=== PATIENT | female | born 1945 | race Caucasian/White ===

== ENCOUNTER 2017-01-02 07:30 | Inpatient (IN) | payer MEDICARE ==
--- NOTE | 2016-12-23 14:40 | HP ---
HISTORY AND PHYSICAL: DATE OF SURGERY: 01/03/17 SURGEON: Sandy Parada MD * (DICTATED BY DARYA ENGLISH) PROCEDURE: Right total hip arthroplasty. DATE OF OFFICE VISIT: 12/23/16 CHIEF COMPLAINT: Right hip pain. HISTORY OF PRESENT ILLNESS: Ms. Haskins is a 71-year-old female with complaints of continued right hip pain secondary to advanced osteoarthritis. She has failed conservative management, has elected to proceed with a right total hip arthroplasty, which is scheduled for 01/03/17. PAST MEDICAL HISTORY: Chronic back pain and osteoarthritis. PAST SURGICAL HISTORY: Right foot bunionectomy, left hand surgery, right foot metatarsal surgery, appendectomy. CURRENT MEDICATIONS: 1. Vitamin E. 2. Vitamin D3. 3. Aspirin 81 mg daily. 4. Claritin. 5. Fluticasone. 6. Raloxifene. ALLERGIES: SULFA drugs. FAMILY HISTORY: Colon cancer. SOCIAL HISTORY: She is a 71-year-old female. She lives with her . She does not smoke or use drugs. Uses occasional alcohol. REVIEW OF SYSTEMS: A complete 14-point review of systems is reviewed with the patient, was all negative or noncontributory. PHYSICAL EXAMINATION GENERAL: She is a well-developed, well-nourished, in no acute distress. VITAL SIGNS: She stands 5 feet 4 inches tall, weighs 134 pounds. Her blood pressure is 126/87, her heart rate is 81. HEENT: Normocephalic, atraumatic. NECK: Supple. No palpable lymph nodes. PULMONARY: Lungs are clear to auscultation bilaterally. CARDIAC: Regular rate and rhythm. Strong S1 and S2. ABDOMEN: Soft, nontender, nondistended. NEUROLOGIC: She is alert and oriented x3. Cranial nerves II through XII are intact. MUSCULOSKELETAL: Right lower extremity, the skin is intact. There are no open wounds or abrasions. She walk with a slightly antalgic type gait favoring her right hip. She has limited internal and external rotation of her right hip. Her lower extremity muscle group strengths are intact at 5/5. She has 2+ dorsalis pedis pulses and intact sensation. ASSESSMENT AND PLAN: Ms. Haskins is a 71-year-old female with continued complaints of right hip pain secondary to advanced osteoarthritis. She has failed conservative management and has elected to proceed with a right total hip arthroplasty, which is scheduled for 01/03/[address] Parada discussed the risks and the benefits of the surgery at today's visit and all of her questions were answered. Coumadin, Colace and Percocet were sent to her pharmacy for postoperative pain control and DVT prophylaxis. She will see Dr. Parada back 2 weeks after the surgery. DARYA ENGLISH [id number]/[facility] #: [id number] MTDD
--- NOTE | 2016-12-23 15:18 | RAD ---
INDICATION: Right hip pain, osteoarthritis, preadmission evaluation. COMPARISON: There are no prior studies available for comparison. TECHNIQUE: Dual-energy PA views of the chest were obtained. FINDINGS: The heart is within normal limits in size. Mediastinal and hilar contours appear within normal limits. The lungs are clear. No pleural effusion is present. IMPRESSION: NO EVIDENCE FOR ACTIVE CARDIOPULMONARY DISEASE.
[2017-01-02] MEDS ORDERED: Buffered Lidocaine 0.9% SYRIN* 5 ML/SYR SYRINGE INTRADERM ONE (13:32)
[2017-01-03] MEDS ORDERED: Buffered Lidocaine 0.9% SYRIN* 5 ML/SYR SYRINGE ONE (07:20)
[2017-01-03] MEDS ORDERED: Morphine PF AMP (0.5MG/ML)* 5 MG/10 ML AMP ONE (07:57)
[2017-01-03] MEDS ORDERED: Midazolam* 1 MG/ML 5 ML VIAL (5 MG) ONE (07:58)
[2017-01-03] MEDS ORDERED: fentaNYL* 50 MCG/ML 2 ML VIAL (100 MCG VIAL) ONE (07:58)
[2017-01-03] MEDS ORDERED: Propofol* 500 MG/50 ML BTL ONE (08:00)
[2017-01-03] MEDS ORDERED: fentaNYL* 50 MCG/ML 2 ML VIAL (100 MCG VIAL) IV PRN (11:27)
[2017-01-03] MEDS ORDERED: Ondansetron INJ* 2 MG/ML VIAL IV PRN (11:30)
[2017-01-03] MEDS ORDERED: diPHENhydraMINE IV* 50 MG/ML 1 ml VIAL (BENADRYL) IV PRN (11:31)
[2017-01-03] MEDS ORDERED: PROCHLORPERAZINE INJ 5 MG/ML 2 ML VIAL IV PRN (11:31)
[2017-01-03] MEDS ORDERED: Nalbuphine* 20 MG/ML 1 ML VIAL IV PRN (11:31)
[2017-01-03] MEDS ORDERED: Naloxone* 0.4 MG/ML 1 ML VIAL IV PRN (11:31)
[2017-01-03] MEDS ORDERED: HYDROcodone/ACETAMIN 5-325 MG* 1 TAB PO PRN ×2 (11:31)
--- NOTE | 2017-01-03 11:32 | RAD ---
HISTORY: Right hip arthroplasty COMPARISONS: November 09, 2016 VIEWS: 1, portable intraoperative view of the right hip during hip arthroplasty FINDINGS: Single portable intraoperative view of the pelvis demonstrates right hip arthroplasty with a temporary femoral sizing component IMPRESSION: PORTABLE VIEW OF THE PELVIS DURING RIGHT HIP ARTHROPLASTY
[2017-01-03] MEDS ORDERED: Polyethylene Glycol 3350* 17 GM PACKET PO PRN (11:58)
[2017-01-03] MEDS ORDERED: Bisacodyl SUPP* 10 MG SUPP PR PRN (11:58)
--- NOTE | 2017-01-03 12:43 | RAD ---
HISTORY: Status post right total hip replacement COMPARISONS: November 09, 2016 VIEWS: 3, frontal views of the pelvis with frontal and crosstable lateral views of the right hip FINDINGS: BONE DENSITY: Normal. BONES: The patient is status post right hip arthroplasty. There is no hardware failure or osteolysis. JOINTS: The patient is status post right hip arthroplasty ALIGNMENT: There is no dislocation. SOFT TISSUES: Unremarkable. OTHER FINDINGS: None. IMPRESSION: STATUS POST RIGHT HIP ARTHROPLASTY
[2017-01-03] MEDS ORDERED: Ondansetron INJ* 2 MG/ML VIAL ONE (13:47)
[2017-01-03] MEDS: Ondansetron INJ* 2 MG/ML VIAL IV PRN ×2 (13:55→20:03)
[2017-01-03] MEDS: Acetaminophen TAB* 325 MG PO SCH ×3 (14:19→22:48)
[2017-01-03] MEDS ORDERED: Warfarin TAB(*) 6 MG PO ONE (17:00)
[2017-01-03] MEDS: ceFAZolin 1 GM VIAL(*) 1 GM in NS 0.9% 50 ML* 50 ML IVPB SCH (17:03)
[2017-01-03] MEDS: Magnesium Hydroxide LIQ* 30 ML UDC PO SCH (20:36)
[2017-01-03] MEDS: Docusate CAP* 100 MG PO SCH (20:36)
[2017-01-03] MEDS: Warfarin TAB(*) 6 MG PO ONE ×2 (20:36→22:48)
[2017-01-04] MEDS: ceFAZolin 1 GM VIAL(*) 1 GM in NS 0.9% 50 ML* 50 ML IVPB SCH ×2 (00:12→09:06)
[2017-01-04] MEDS ORDERED: diPHENhydraMINE IV* 50 MG/ML 1 ml VIAL (BENADRYL) IV PRN (01:00)
[2017-01-04] MEDS ORDERED: oxyCODONE/Acetamin 5/325 MG* TAB PO PRN (01:00)
[2017-01-04] MEDS ORDERED: diPHENhydraMINE PO* 25 MG PO PRN (01:00)
[2017-01-04] MEDS ORDERED: Ondansetron TAB* 4 MG PO PRN (01:00)
[2017-01-04] MEDS ORDERED: Ondansetron INJ* 2 MG/ML VIAL IV PRN (01:00)
[2017-01-04] MEDS ORDERED: Morphine INJ* 10 MG/ML 1 ML SYRINGE IV PRN (01:00)
[2017-01-04] MEDS ORDERED: Acetaminophen TAB* 325 MG PO PRN (01:00)
--- NOTE | 2017-01-04 03:51 | OP ---
DATE OF OPERATION: 01/03/17 - ROOM #348 DATE OF : 45 SURGEON: Sandy Parada MD [employer]USTRI[employer] C[employer]TER: DARYA Schreiber. Ms. Caballero did help throughout the procedure with preparation of the leg, wound retraction, manipulation of the hip, and wound closure. ANESTHESIOLOGIST: Davida Plunkett MD ANESTHESIA: Spinal. PRE-OP DIAGNOSIS: Severe end-stage degenerative osteoarthritis of the right hip joint. POST-OP DIAGNOSIS: Severe end-stage degenerative osteoarthritis of the right hip joint. OPERATIVE PROCEDURE: Right total hip arthroplasty. INDICATIONS: Ms. Haskins is a 71-year-old female with years of increasingly severe right hip pain. She failed conservative treatment with antiinflammatories, pain medication, ambulatory assistive devices, and physical therapy. Due to continued pain and decreased quality of life, she elected to undergo right total hip arthroplasty. Radiographs confirmed [id number] arthritis. Informed consent was obtained from the patient. She understood the risks of the procedure included, but were not limited to bleeding, infection, damage to nearby structures, continued pain, need for further surgery, intraoperative fracture, nerve palsy, dislocation, leg length discrepancy, stroke, heart attack, blood clot, and . She wished to proceed. ESTIMATED BLOOD LOSS: 200 cc. SPECIMENS: Femoral head and acetabular reaming sent to Pathology. COMPLICATIONS: None. HARDWARE USED: This is uncemented Mark total hip arthroplasty hardware for the acetabulum of 52E Trident hemispherical acetabular shell. Two 20-mm screws were used. For the insert, a MDM cementless liner 42E. For the femoral stem, an Accolade TMZF, size 4, 132-degree neck. For the femoral head, a [place] LFIT femoral head 28 +0 and for the insert, a hindu ADM/MDM, size 28/48/ 42E. INTRAOPERATIVE FINDINGS: Intraoperatively, the patient was noted to have end- stage arthritis with complete loss of cartilage along the femoral head and acetabulum. She had significant anterior and inferior acetabular osteophyte formation. Osteopenia was noted throughout the case. DESCRIPTION OF PROCEDURE: Ms. Haskins was identified in the preanesthesia unit. Her right lower extremity was marked as the correct operative side. Informed consent was signed and placed in the chart. The patient was taken to the operating room and placed under spinal anesthesia. A Santoro catheter was placed. The patient was placed in the left lateral decubitus position on the peg board and all bony prominences were well padded. Right lower extremity was prepped and draped in the usual sterile fashion. Preop time-out was made to correctly identify the patient's side and site. Appropriate perioperative antibiotics were given within 1 hour of incision. The right lower extremity was prepped and draped in the usual sterile fashion. A 12-cm posterior hip incision was made with a 10 blade and carried down to the lateral fascial layer. Lateral fascial layer was then incised in line with the skin incision using a 10 blade. A Charnley retractor was placed. The piriformis and conjoint tendons were identified along the posterolateral femur. These were elevated off the posterolateral femur using electrocautery and tagged with two #5 Ethibonds. Next, electrocautery was used to make a standard posterolateral capsular flap, and this was also tagged with two #5 Ethibonds. The hip was carefully dislocated. Lesser troch to center of the femoral head measured 60 mm. An oscillating saw was used to make the appropriate femoral neck cut. The femoral head was sent to Pathology. The femur was carefully retracted anteriorly. After appropriate placement of retractors, the acetabulum was visualized. There was significant osteophyte formation along the anterior and inferior acetabulum. Long-handled knife was used to sharply remove any remaining labrum from the acetabular rim. The acetabulum was sequentially reamed up to a size 51. Good subchondral bleeding bone bed was obtained. A size 51 trial had excellent fit. Final implant chosen was a Trident hemispherical acetabular shell size 52E. This was impacted into the acetabulum without difficulty. Stability of the acetabular shell was excellent with good abduction angle and anteversion. Two 20-mm screws were placed in the superoposterior quadrant for added stability. An MDM cementless liner 42E was chosen and this was impacted into the acetabulum. To prevent impingement, a thin osteotome was used to remove osteophytes along the anterior and inferior acetabular rim. Attention was next turned to preparation of the proximal femur. A canal finder was used to enter the proximal femur. Proximal femur was then sequentially broached up to a size 4. Size 4 had good stability and fit as well as appropriate anteversion. A 132-degree neck trial was chosen as well as a 28 +0 femoral head and 28/48/42E liner trial. The hip was reduced and taken through a range of motion. The hip was stable in all positions. The hip was carefully dislocated. All trials were carefully removed. Size 4 Accolade TMZF femoral stem with a 132-degree neck angle was chosen as the final implant. This was impacted into the femoral canal without difficulty. Good stability was obtained. The 28 +0 femoral head was chosen and lesser troch to center of the femoral head measured 60 mm. The final insert was a 28/48/42E insert. The hip was carefully reduced and taken through a range of motion. The hip was stable in all positions. The hip was copiously irrigated with sterile saline. Previously tagged tendons and capsule were reapproximated to the posterolateral femur through two trochanteric drill holes. Lateral fascial layer was closed using interrupted # 1 Vicryls. The rest of the incision was closed in a layered fashion using 0 and 2-0 Vicryls. Skin was closed using 3-0 Monocryl and Dermabond. Sterile Adaptic, 4x4's, and paper tape were used to cover the incision. The patient's anesthesia was reversed without difficulty. She was taken to the PACU in stable condition. The intended weightbearing will be weightbearing as tolerated with posterior hip precautions. Intended DVT prophylaxis will be Coumadin with a Lovenox bridge. [id number]/[facility] #: [id number] CARLOTA
[2017-01-04] MEDS: oxyCODONE TAB* 5 MG TAB PO PRN ×2 (06:17→20:00)
[2017-01-04 08:47] LABS: Hematocrit 35 % (35-47); Hemoglobin 11.5 g/dl (12.0-16.0)
[2017-01-04] MEDS ORDERED: NS 0.9% 50 ML* 50 ML ONE (08:59)
[2017-01-04 09:00] LABS: BUN/Creatinine Ratio 15.3 (8-20); Calcium 8.8 mg/dL (8.6-10.3); EGFR African American 129.2 (>60); EGFR Non-African American 100.5 (>60); Potassium 3.5 mmol/L (3.5-5.0)
[2017-01-04] MEDS: Vitamin THERAPEUTIC TAB PO SCH (09:03)
[2017-01-04] MEDS: Cholecalciferol TAB* 400 UNIT PO SCH (09:03)
[2017-01-04] MEDS: Docusate CAP* 100 MG PO SCH ×2 (09:03→20:00)
[2017-01-04] MEDS: Cetirizine* 10 MG TAB PO SCH (09:03)
[2017-01-04] MEDS: Magnesium Hydroxide LIQ* 30 ML UDC PO SCH ×2 (09:05→19:59)
[2017-01-04] MEDS: RALOXIFENE 60 MG PO SCH (09:43)
[2017-01-04] MEDS: Fluticasone NASAL SPRAY 50MCG* 16 gm SPRAY BTL BOTH NARES SCH (09:43)
--- NOTE | 2017-01-04 10:42 | PN ---
Progress Note - Progress Note Date of Service: 01/04/17 SOAP: Subjective: []Patient seen OOB in chair. She is felling well, mild right hip pain. Denies dizziness, SOB or chest pain. If she continues to do well she may consider discharge home tomorrow afternoon. Objective: [] Vital Signs Temp 98.0 F 01/04/17 07:42 Pulse 93 01/04/17 07:42 Resp 18 01/04/17 08:17 BP 97/47 01/04/17 07:42 Pulse Ox 99 01/04/17 07:42 Intake & Output 01/03/17 01/04/17 01/04/17 18:59 06:59 18:59 Intake Total 2200 2573 225 Output Total 700 500 Balance 1500 2073 225 Weight 133 lb Intake: IV Fluids 1800 1633 ABX - CEFAZOLIN 110 LR 1800 1523 Oral 400 940 225 Output: Urine 500 Santoro 150 500 Emesis 50 Laboratory Results - last 24 hr 01/04/17 01/04/17 01/04/17 08:33 08:33 08:33 Hgb 11.5 L Hct 35 INR (Anticoag Therapy) 0.99 Sodium 133 Potassium 3.5 Chloride 102 Carbon Dioxide 27 Anion Gap 4 BUN 9 Creatinine 0.59 Est GFR ( Amer) 129.2 Est GFR (Non-Af Amer) 100.5 BUN/Creatinine Ratio 15.3 Glucose 158 H Calcium 8.8 Right hip dressing is dry and intact +DF/PF right ankle calf non tender and soft sensation and circulation intact distally Assessment: []s/p Right total hip arthroplasty POD #1 Plan: []PT/OT WBAT RLE Coumadin with Lovenox bridge- 8 mg today Possible discharge home tomorrow if PT goals mastered
[2017-01-04] MEDS: oxyCODONE/Acetamin 5/325 MG* TAB PO PRN ×2 (10:52→16:51)
[2017-01-04] MEDS: Enoxaparin(*) 30 MG/0.3 ML SYR SUBCUT SCH (12:18)
[2017-01-04] MEDS ORDERED: Lactated Ringers 500 ml BAG* 500 ML IV ONE (15:00)
[2017-01-04] MEDS ORDERED: Warfarin TAB(*) 4 MG PO ONE (17:00)
[2017-01-04 17:58] LABS: Hematocrit 35 % (35-47); Hemoglobin 11.4 g/dl (12.0-16.0)
--- NOTE | 2017-01-05 00:13 | CONS ---
CC: Dr. Ralf Olivas; Dr. Parada * CONSULTATION REPORT: DATE OF CONSULTATION: 01/04/17 PRIMARY CARE PROVIDER: Dr. Ralf Olivas. REQUESTING PROVIDER: Dr. Parada. REASON FOR CONSULTATION: Hypotension. HISTORY OF PRESENT ILLNESS: Ms. Haskins is a 71-year-old female who was in relatively good health, who was admitted to [facility] following an elective right total hip arthroplasty. The patient had been doing well postoperatively; however, states that the day of her surgery, she vomited quite a lot. She states that she was unable to keep anything down. Today, the day of consultation, the patient has been able to keep food down. She was up working with physical therapy on getting to a standing position from a chair when she suddenly felt faint. The patient described it as being mild; however, the staff noted her to be pale and diaphoretic. The patient's blood pressure was obtained at that time and her systolic blood pressure was less than 80. The patient was assisted into a recliner and brought back to her room. At that time , the patient was seen by DARYA Schreiber from Orthopedics where a 500 mL bolus of LR was administered. The patient's blood pressure since that episode has remained on the low side. The patient does tell me that her usual blood pressure is in the 120s to 130s range. Of note, however, the patient's blood pressure has been soft since the morning the day after surgery. The patient currently denies any lightheadedness. She had just gotten up to the bathroom with assistance from nursing without any lightheadedness or dizziness. She denies any chest pain or shortness of breath. PAST MEDICAL HISTORY: 1. Allergic rhinitis. 2. Osteoporosis. 3. Chronic back pain. PAST SURGICAL HISTORY: 1. Right total hip arthroplasty. 2. Right foot bunionectomy. 3. Left hand surgery. 4. Right foot metatarsal surgery. 5. Appendectomy. ALLERGIES: SULFA MEDICATIONS, BEES, and MUSHROOMS. HOME MEDICATIONS: 1. Flonase 2 squirts in both nostrils daily. 2. Aspirin 81 mg p.o. daily. 3. Evista 60 mg p.o. daily. 4. Loratadine 10 mg p.o. daily. 5. Vitamin D 400 units p.o. daily. 6. Epinephrine injected as needed for allergic reaction. 7. Fluocinonide cream apply topically twice daily p.r.n. dry skin. HOSPITAL MEDICATIONS: 1. Tylenol. 2. Dulcolax suppository. 3. Zyrtec. 4. Vitamin D. 5. Benadryl. 6. Colace. 7. Lovenox. 8. Flonase. 9. Lactulose. 10. Milk of magnesia. 11. Morphine. 12. Multivitamin. 13. Zofran. 14. Oxycodone. 15. Percocet. 16. MiraLAX. 17. Evista. FAMILY HISTORY: Positive for colon cancer. SOCIAL HISTORY: The patient is . She lives with her . She does not drink routinely. She does not use tobacco. REVIEW OF SYSTEMS: A complete 11-system review of systems is obtained. Pertinent positives and negatives as per HPI and otherwise negative. PHYSICAL EXAMINATION: Blood pressure 88/50, pulse 84, respirations 16, temp 98.2, O2 sat 97% on room air. General: The patient is a well-developed, elderly female, sitting up in bed, appearing well, and in no acute distress. HEENT: Pupils are equal, they are round, they react to light. Extraocular muscles are intact. Oropharynx is clear. Oral mucosa is moist. There is no submandibular, cervical, or supraclavicular adenopathy. Thyroid is not enlarged. No thyroid nodules are noted. Cardiac: Normal S1, S2. Regular rate and rhythm. I do not appreciate any murmurs. There is no lower extremity edema. Pulmonary: Lungs are clear to auscultation bilaterally. Abdomen: Bowel sounds are present. Abdomen is soft, nontender, nondistended. Musculoskeletal: There is full active range of motion of the upper extremities. Lower extremity range of motion not tested due to being only postop day #1 from right total hip arthroplasty. Skin is warm and dry. There are no rashes. The dressing over the lateral hip is clean and dry. Neuro testing is not performed at this time. Psych: The patient is alert; she is oriented x3. Affect appears appropriate. DIAGNOSTIC STUDIES/LAB DATA: Hemoglobin of 11.5, hematocrit of 35, this is down from a hemoglobin of 14.5 and a hematocrit of 44 on 12/23/16. ASSESSMENT AND PLAN: Ms. Haskins is a 71-year-old female postop day #1 from an elective right total hip arthroplasty who has been hypotensive on postop day #1 with possible near syncopal events during physical therapy. 1. Hypotension. My suspicion is patient is hypotensive related to poor oral intake prior to surgery and then vomiting after surgery. The patient states her appetite has finally improved today. She did receive a 500 mL bolus; however, as she does not have a history of heart failure, I have recommended that she receive another 1 L bolus with blood pressure to follow. Additionally , as the hypotension is relatively new today, I will go ahead and order a stat hemoglobin and hematocrit to ensure that she has not bled significantly. The patient did have a drop in her H and H following surgery; however, that mild drop, I would not think could cause the hypotension being seen today. Stat H and H is pending at the time of this dictation. 2. Near syncopal episode. I suspect this is likely vasovagal and likely related to volume depletion. The patient feels much improved. She was able to ambulate to the bathroom with assistance without any difficulty. I do not believe that she needs to be transferred at this time for any further monitoring. 3. DVT prophylaxis, management per Orthopedics and currently consists of Lovenox bridging to Coumadin. 4. Code status is full. TIME SPENT: 40 minutes were spent on this consultation. [id number]/[facility] #: [id number] CARLOTA
[2017-01-05] MEDS: oxyCODONE TAB* 5 MG TAB PO PRN (00:18)
[2017-01-05] MEDS: oxyCODONE/Acetamin 5/325 MG* TAB PO PRN ×2 (04:33→08:14)
[2017-01-05 06:17] LABS: Hematocrit 33 % (35-47); Hemoglobin 10.8 g/dl (12.0-16.0)
[2017-01-05] MEDS: Fluticasone NASAL SPRAY 50MCG* 16 gm SPRAY BTL BOTH NARES SCH (07:17)
[2017-01-05] MEDS: Magnesium Hydroxide LIQ* 30 ML UDC PO SCH (08:13)
[2017-01-05] MEDS: Cetirizine* 10 MG TAB PO SCH (08:14)
[2017-01-05] MEDS: Cholecalciferol TAB* 400 UNIT PO SCH (08:14)
[2017-01-05] MEDS: Docusate CAP* 100 MG PO SCH (08:14)
[2017-01-05] MEDS: Vitamin THERAPEUTIC TAB PO SCH (08:14)
[2017-01-05] MEDS: RALOXIFENE 60 MG PO SCH (08:14)
--- NOTE | 2017-01-05 09:44 | PN ---
Progress Note - Progress Note Date of Service: 01/05/17 SOAP: Subjective: []Patient seen OOB in chair. She is feeling much better today. Her color is much improved and denies further nausea, vomiting or dizziness. She denies SOB or chest pain. She is waiting for her family to come in for PT session and hopes that she will be able to go home this afternoon. Objective: [] Vital Signs Temp 98.0 F 01/05/17 07:36 Pulse 106 01/05/17 07:36 Resp 18 01/05/17 08:14 BP 92/48 01/05/17 07:36 Pulse Ox 97 01/05/17 07:36 Intake & Output 01/04/17 01/05/17 01/05/17 18:59 06:59 18:59 Intake Total 2133 2939 300 Output Total 1000 1125 0 Balance 1133 1814 300 Intake: IV Fluids 1423 1699 LR 1423 1699 IVPB 60 ABX - CEFAZOLIN 60 Oral 650 1240 300 Output: Urine 1000 1125 0 Other: Estimated Void Small Date of Last Bowel 0 Movement # Bowel Movements 0 Laboratory Results - last 24 hr 01/04/17 01/05/17 01/05/17 17:46 05:49 05:49 Hgb 11.4 L 10.8 L Hct 35 33 L INR (Anticoag Therapy) 1.70 H Right hip dressings were removed, scant drops of blood on dressing, wound is benign new 4x4s and tape applied to Right hip incision +DF/PF right ankle calf NT and soft sensation remains intact Assessment: []s/p right total hip arthroplasty POD #2 Post op hypotension/ volume depletion, resolved after 1.5L LR IVF 01/04 Plan: []PT/OT WBAT RLE Possible discharge home this afternoon if she remains medically stable Coumadin 2 mg today Follow up in 10-14 days as scheduled with Dr. Parada
[2017-01-05] MEDS: Enoxaparin(*) 30 MG/0.3 ML SYR SUBCUT SCH (12:25)
[2017-01-05 12:59] VITALS: BP 124/57
--- NOTE | 2017-01-05 13:08 | PN ---
Subjective Date of Service: 01/05/17 Interval History: Ms. Haskins states that she is feeling well today. She denies chest pain, SOB , nausea, abdominal pain. She did develop a rash on her torso. Objective Active Medications: Acetaminophen (Tylenol Tab*) 650 mg PO Q4H PRN Bisacodyl (Dulcolax Supp*) 10 mg HI DAILY PRN Cetirizine HCl (Zyrtec*) 10 mg PO QAM [facility] Cholecalciferol (Vitamin D Tab*) 400 unit PO QAM RODRICK Diphenhydramine HCl (Benadryl Iv*) 12.5 mg IV Q6H PRN Diphenhydramine HCl (Benadryl Po*) 25 mg PO Q6H PRN Docusate Sodium (Colace Cap*) 100 mg PO BID RODRICK Enoxaparin Sodium (Lovenox(*)) 30 mg SUBCUT Q24H [facility] Fluticasone Propionate (Flonase Nasal [place] 50mcg*) 2 spray BOTH NARES DAILY [facility] Lactated Ringer's (Lactated Ringers 1000 Ml Bag*) 1,000 mls @ 100 mls/hr IV PER RATE RODRICK Lactulose (Lactulose*) 30 ml PO Q6H PRN Magnesium Hydroxide (Milk Of Magnesia Liq*) 30 ml PO BID RODRICK Morphine Sulfate (Morphine Inj (Syringe)*) 5 mg IV Q2H PRN Multivitamins (Theragran Tab*) 1 tab PO DAILY RODRICK Ondansetron HCl (Zofran Inj*) 4 mg IV Q6H PRN Ondansetron HCl (Zofran Tab*) 4 mg PO Q6H PRN Oxycodone HCl (Roxycodone Tab*) 10 mg PO Q4H PRN Oxycodone/Acetaminophen (Percocet 5/325 Tab*) 1 tab PO Q3H PRN Oxycodone/Acetaminophen (Percocet 5/325 Tab*) 2 tab PO Q3H PRN Pharmacy Profile Note (Coumadin Daily Reminder*) 1 note FOLLOW UP 1700 [facility] Polyethylene Glycol/Electrolytes (Miralax*) 17 gm PO DAILY PRN Raloxifene HCl (Evista(Nf)) 60 mg PO QAM [facility] Warfarin Sodium (Coumadin Tab(*)) 2 mg PO ONCE@1700 ONE Vital Signs 01/04/17 01/04/17 01/04/17 15:26 15:57 16:51 Temperature 98.2 F Pulse Rate 84 Respiratory 21 16 Rate Blood Pressure 88/50 88/50 (mmHg) O2 Sat by Pulse 97 Oximetry 01/04/17 01/04/17 01/04/17 17:24 17:32 18:51 Temperature 98.3 F Pulse Rate 101 Respiratory 21 16 Rate Blood Pressure 120/56 (mmHg) O2 Sat by Pulse 97 98 Oximetry 01/04/17 01/04/17 01/04/17 19:37 20:00 20:11 Temperature 99.2 F Pulse Rate 94 Respiratory 23 16 16 Rate Blood Pressure 97/60 (mmHg) O2 Sat by Pulse 99 Oximetry 01/04/17 01/05/17 01/05/17 22:00 00:01 00:18 Temperature 98.7 F Pulse Rate 106 Respiratory 16 16 18 Rate Blood Pressure 126/83 (mmHg) O2 Sat by Pulse 98 Oximetry 01/05/17 01/05/17 01/05/17 02:19 04:02 04:33 Temperature 99.4 F Pulse Rate 111 Respiratory 20 16 18 Rate Blood Pressure 114/47 (mmHg) O2 Sat by Pulse 98 Oximetry 01/05/17 01/05/17 01/05/17 06:12 07:36 08:00 Temperature 98.0 F Pulse Rate 106 Respiratory 18 15 16 Rate Blood Pressure 92/48 (mmHg) O2 Sat by Pulse 97 97 Oximetry 01/05/17 01/05/17 01/05/17 08:14 10:14 11:24 Temperature 97.9 F Pulse Rate 98 Respiratory 18 16 15 Rate Blood Pressure 124/57 (mmHg) O2 Sat by Pulse 97 Oximetry 01/05/17 12:25 Temperature Pulse Rate Respiratory 18 Rate Blood Pressure (mmHg) O2 Sat by Pulse Oximetry Oxygen Devices in Use Now: None Appearance: Female sitting up in chair in NAD Eyes: No Scleral Icterus Ears/Nose/Mouth/Throat: Mucous Membranes Moist Neck: Trachea Midline Respiratory: Symmetrical Chest Expansion and Respiratory Effort, Clear to Auscultation Cardiovascular: NL Sounds; No Murmurs; No JVD, No Edema Abdominal: NL Sounds; No Tenderness; No Distention Lymphatic: No Cervical Adenopathy Extremities: No Edema Skin: No Rash or Ulcers Neurological: Alert and Oriented x 3, NL Muscle Strength and Tone Nutrition: Taking PO's Result Diagrams: 01/05/17 05:49 01/04/17 08:33 Assess/Plan/Problems-Billing Assessment: Ms. Briones is a 71 yo F with a PMH of osteoporosis who was admitted on for an elective right total hip arthroplasty. - Patient Problems (1) S/P hip replacement Comment: - Management per ortho. - Pain meds prn with bowel regimen. - PT/OT. - H/H stable. (2) Hypotension Comment: - Resolved. (3) Rash Comment: - Suspect secondary to antibiotics or other medication received in hospital. - Mild, no blistering etc. (4) DVT prophylaxis Comment: - Warfarin per ortho. (5) Full code status Status and Disposition: Inpatient with disposition per ortho.
[2017-01-05] MEDS ORDERED: Warfarin TAB(*) 2 MG PO ONE (14:00)
--- NOTE | 2017-01-05 23:25 | DS ---
DISCHARGE SUMMARY: DATE OF ADMISSION: 01/03/17 DATE OF DISCHARGE: 01/05/17 ATTENDING PHYSICIAN: Dr. Sandy Parada. * (DICTATED BY DARYA LYLES) ADMISSION DIAGNOSIS: Severe end-stage degenerative osteoarthritis, right hip. DISCHARGE DIAGNOSES: 1. Severe end-stage degenerative osteoarthritis of the right hip. 2. Postoperative hypotension/hypovolemia. SURGERY PERFORMED: Right total hip arthroplasty. HOSPITAL COURSE: The patient is a 71-year-old female who has had years of increasingly severe right hip pain. She failed conservative management with antiinflammatories, pain medication, ambulatory assistive devices, and physical therapy. Due to the fact she was having increased pain and decreased quality of life, she elected to proceed with surgical intervention and was taken to the operating room under the care of Dr. Sandy Parada on the date of 01/03/17. She tolerated the aforementioned procedure well and left the operating room in stable condition. Postoperatively, in the afternoon of postoperative day #1, she did feel lightheaded and diaphoretic. Her vitals showed low blood pressure and she appeared pale. She was initially bolused with 500 cc of lactated Ringer 's, which only helped her blood pressure slightly, although she began to feel better. Medical consult was sought out and Dr. Bueno recommended an additional 1 L of fluid be infused. This was ordered and the patient was evaluated thereafter by Dr. Bueno. She did improve significantly after receiving the additional liter of lactated Ringer's and had no further symptoms of dizziness or diaphoresis. She also noticed a slight faint rash on her upper chest postoperative day #2, which was also evaluated by Medicine and felt it may have been reaction to her medication. The patient has not had any pruritus from it, any blistering, any significant symptoms and it actually appears to be fading at the time of this dictation. She progressed very well with her physical therapy and occupational therapy goals and was ambulating with her walker independently this afternoon. She feels well and feels ready for discharge. It was discussed with Dr. Bueno as well and she feels she is medically stable for discharge to home, today 01/05/17. CONDITION ON DISCHARGE: Vital Signs: Temperature 97.9, pulse 98, respiratory rate 15, O2 sats 97% on room air, BP 124/57. Her hemoglobin is 10.8, her hematocrit 33. Her INR is 1.70 after receiving 8 mg of Coumadin yesterday, 01/04/17. Her right hip incision is healing without evidence of infection. There is no active drainage or significant swelling noted. PLAN: Discharge to home with VNS. She will be given 2 mg of Coumadin today prior to discharge. I am recommending she take 2 mg of Coumadin on Monday, ; 2 mg of Coumadin on 01/07/17; 2 mg of Coumadin on Monday, 01/08. She will have a repeat INR blood draw on 01/09/17, with subsequent dosages to come from the office. She has Colace and Coumadin as well as her Percocet medications at home. She will continue to bear weight as tolerated on the right lower extremity and maintain hip precautions as learned. She will follow up as scheduled with Dr. Parada in roughly 2 weeks. If she has any problems with drainage, increased pain, redness, swelling about the incision, calf pain, or swelling, the office will be contacted prior to her scheduled followup. DARYA LYLES [id number]/[facility] #: [id number] [place]
== END 2017-01-05 14:40 | disposition home health service (06) | DRG 470 ==
LOC: AA 01-03 06:39 → SSU 01-03 13:42
PROVIDERS: ADMIT Orthopaedic Surgery Adult Reconstructive Orthopaedic Surgery; ATTEND Orthopaedic Surgery Adult Reconstructive Orthopaedic Surgery
PROC: 0SR90JA Replacement of Right Hip Joint with Synthetic Substitute, Uncemented, Open Approach (ICD-10-PCS; principal; 2017-01-03 09:00)
DX: M16.11 Unilateral primary osteoarthritis, right hip (principal); E86.1 Hypovolemia; R55 Syncope and collapse; G89.29 Other chronic pain; M54.9 Dorsalgia, unspecified; I95.81 Postprocedural hypotension; R21 Rash and other nonspecific skin eruption; M81.0 Age-related osteoporosis without current pathological fracture; R11.10 Vomiting, unspecified; M25.751 Osteophyte, right hip; M85.88 Other specified disorders of bone density and structure, other site; T50.905A Adverse effect of unspecified drugs, medicaments and biological substances, initial encounter; Z88.2 Allergy status to sulfonamides; Z80.0 Family history of malignant neoplasm of digestive organs; Z72.89 Other problems related to lifestyle; Z91.030 Bee allergy status; Z91.018 Allergy to other foods
CPT/HCPCS: 36415; 71010; 80048; 85014; 85018; 85610; 93005; A9270-GY; C1713; C1776; J0690; J1650; J2250; J2300; J2405; J2704; J3010